=== PATIENT | female | born 1940 | race Caucasian/White ===

== ENCOUNTER 2017-09-15 13:00 | Outpatient (RCR) | payer MEDICARE | END 2017-11-07 | disposition home or self-care (01) | LOC: SPEECH | DX: R49.0 Dysphonia (principal) ==

== ENCOUNTER 2017-11-26 14:30 | Outpatient (RCR) | payer MEDICARE | END 2017-11-26 15:00 | disposition home or self-care (01) | LOC: PT 14:30 | DX: R26.89 Other abnormalities of gait and mobility (principal) ==

== ENCOUNTER 2020-08-07 16:40 | Emergency (ER) | payer MEDICARE ==
[2020-08-07 17:08] LABS: HEMATOCRIT 37.7 % (37.0-47.0); HEMOGLOBIN 11.9 g/dL (12.5-16.0); MEAN CELL VOLUME 94 fl (78-100); MEAN CORPUSCULAR HEMOGLOBIN 30 pg (27-31); MEAN CORPUSCULAR HGB CONC 32 g/dL (33-37); MEAN PLATELET VOLUME 9.9 fl (7.4-10.4); PLATELET COUNT 98 K/mm3 (130-400); RED BLOOD COUNT 4.02 M/mm3 (4.10-5.30); RED CELL DISTRIBUTION WIDTH 14.9 % (11.5-14.5)
[2020-08-07 17:15] LABS: ALBUMIN 3.5 g/dL (3.4-4.8)
[2020-08-07 17:16] LABS: POTASSIUM 3.8 mmol/L (3.5-5.1)
[2020-08-07 17:17] LABS: CALCIUM 8.7 mg/dL (8.3-10.5); LYMPHOCYTE 29 % (20-51); MONOCYTE 12 % (3-10); NEUTROPHILS 55 % (42-75); TEAR DROP CELLS 1+
[2020-08-07 17:18] LABS: TOTAL PROTEIN 6.8 g/dL (6.2-8.1)
[2020-08-07 17:20] LABS: TOTAL BILIRUBIN 0.4 mg/dL (0.2-1.2)
[2020-08-07 17:25] LABS: PROTHROMBIN TIME 11.4 SECONDS (9.0-12.0)
[2020-08-07 17:30] LABS: TROPONIN-I 0.07 ng/mL (<0.030)
[2020-08-07 17:41] LABS: D-DIMER 16.82 mg/L FEU (0.15-0.50)
[2020-08-07 17:47] LABS: URINE APPEARANCE CLOUDY; URINE BILIRUBIN NEGATIVE (NEGATIVE); URINE BLOOD 50 ery/uL (NEGATIVE); URINE COLOR YELLOW; URINE GLUCOSE NEGATIVE (NEGATIVE); URINE KETONE NEGATIVE (NEGATIVE); URINE LEUKOCYTE ESTERASE TRACE (NEGATIVE); URINE NITRATE NEGATIVE (NEGATIVE); URINE PROTEIN(semi-quant) 2+ mg/dL (NEGATIVE); URINE UROBILINOGEN NORMAL (NORMAL)
[2020-08-07 17:48] LABS: URINE MUCUS PRESENT (NOT PRESENT)
[2020-08-07 18:38] VITALS: BP 159/81
== END 2020-08-07 17:43 | disposition short-term general hospital (02) ==
LOC: ED 16:40
PROVIDERS: Family Medicine; Physician Assistant
DX: I21.3 ST elevation (STEMI) myocardial infarction of unspecified site (principal); R09.02 Hypoxemia; F17.200 Nicotine dependence, unspecified, uncomplicated; Z88.0 Allergy status to penicillin; Z85.118 Personal history of other malignant neoplasm of bronchus and lung; Z20.822 Contact with and (suspected) exposure to COVID-19
CPT/HCPCS: J1644; J3101

== ENCOUNTER 2020-09-10 11:06 | Outpatient (RCR) | payer MEDICARE ==
[2020-10-23] MEDS ORDERED: ANORO ELLIPTA1 POW IH (13:50)
[2020-10-23] MEDS ORDERED: HELIOCARE240 MG PO (13:51)
[2020-10-23] MEDS ORDERED: LIPITOR 40MG TA40 MG PO (13:51)
[2020-10-23] MEDS ORDERED: LASIX20 M1 PO (13:51)
[2020-10-23] MEDS ORDERED: PLAQUENIL 200M200 MG PO (13:52)
[2020-10-23] MEDS ORDERED: TOPROL XL 25MG25 MG PO (13:52)
[2020-10-23] MEDS ORDERED: PHARMASSURE MA500 MG PO (13:53)
[2020-10-23] MEDS ORDERED: SERTRALINE50 MG PO (13:53)
[2020-10-23] MEDS ORDERED: ENTRESTO 24 MG1 EACH PO (13:53)
[2020-10-23] MEDS ORDERED: GOOD SENSE ASPI81 M1 PO (13:53)
[2020-10-23] MEDS ORDERED: MELATONIN5 M3 PO (13:54)
[2020-10-23] MEDS ORDERED: DAILY VALUE1 EACH PO (13:54)
[2020-10-23] MEDS ORDERED: VITAMIN C PUR1000 MG PO (13:55)
== END 2020-12-09 | disposition still patient (30) ==
LOC: CARDLAB
DX: I21.4 Non-ST elevation (NSTEMI) myocardial infarction (principal); I25.2 Old myocardial infarction; Z98.61 Coronary angioplasty status

== ENCOUNTER → 2020-10-23 | Outpatient (CLI) | payer MEDICARE ==
[~2020-10-23] MED LIST: ANORO ELLIPTA1 POW IH; DAILY VALUE1 EACH PO; ENTRESTO 24 MG1 EACH PO; GOOD SENSE ASPI81 M1 PO; HELIOCARE240 MG PO; LASIX20 M1 PO; LIPITOR 40MG TA40 MG PO; MELATONIN5 M3 PO; PHARMASSURE MA500 MG PO; PLAQUENIL 200M200 MG PO; SERTRALINE50 MG PO; TOPROL XL 25MG25 MG PO; VITAMIN C PUR1000 MG PO
[2020-10-23 13:39] VITALS: BP 114/59
[2020-10-23 17:33] VITALS: BP 127/63
== END ==
LOC: AMSURD 10:44
DX: I50.22 Chronic systolic (congestive) heart failure (principal)
CPT/HCPCS: J3475

== ENCOUNTER 2020-12-24 11:00 | Outpatient (RCR) | payer MEDICARE ==
[2020-10-23 17:33] VITALS: BP 127/63
== END 2021-03-24 | disposition home or self-care (01) ==
LOC: CARDREHAB
DX: Z48.812 Encounter for surgical aftercare following surgery on the circulatory system (principal); I25.2 Old myocardial infarction

== ENCOUNTER → 2021-08-26 | Outpatient (CLI) | payer MEDICARE | LOC: RAD 12:53 | DX: E04.1 Nontoxic single thyroid nodule (principal) ==

== ENCOUNTER → 2021-11-20 | Outpatient (CLI) | payer MEDICARE | LOC: RAD 12:24 | DX: K22.2 Esophageal obstruction (principal) ==

== ENCOUNTER 2022-03-12 11:09 | Outpatient (RCR) | payer MEDICARE | END 2022-03-18 | disposition home or self-care (01) | LOC: PT | DX: R64 Cachexia (principal) ==

== ENCOUNTER 2022-03-19 09:13 | Outpatient (RCR) | payer MEDICARE ==
[2022-03-20] MEDS ORDERED: CEPHALEXIN500 M2 PO (12:37)
== END 2022-04-17 ==
LOC: PT
DX: M81.0 Age-related osteoporosis without current pathological fracture (principal); R64 Cachexia; R53.1 Weakness

== ENCOUNTER 2022-03-19 12:03 | Emergency (ER) | payer MEDICARE ==
[~2022-03-19] VITALS: Ht 160 cm; Wt 36.4 kg
[2022-03-19 13:30] LABS: HEMATOCRIT 34.8 % (37.0-47.0); HEMOGLOBIN 11.3 g/dL (12.5-16.0); MEAN CELL VOLUME 98 fl (78-100); MEAN CORPUSCULAR HEMOGLOBIN 32 pg (27-31); MEAN CORPUSCULAR HGB CONC 33 g/dL (33-37); MEAN PLATELET VOLUME 11.1 fl (7.4-10.4); PLATELET COUNT 90 K/mm3 (130-400); RED BLOOD COUNT 3.57 M/mm3 (4.10-5.30); RED CELL DISTRIBUTION WIDTH 17.5 % (11.5-14.5); WHITE BLOOD COUNT 6.5 K/mm3 (4.8-10.8)
[2022-03-19 13:56] LABS: ALBUMIN 3.1 g/dL (3.4-4.8); POTASSIUM 4.2 mmol/L (3.5-5.1); SODIUM 138 mmol/L (136-145)
[2022-03-19 13:57] LABS: CALCIUM 8.9 mg/dL (8.3-10.5)
[2022-03-19 13:58] LABS: GLUCOSE 141 mg/dL (65-105)
[2022-03-19 13:59] LABS: TOTAL PROTEIN 6.6 g/dL (6.2-8.1)
[2022-03-19 14:00] LABS: CARBON DIOXIDE 22 mmol/L (23-31); TOTAL BILIRUBIN 0.5 mg/dL (0.2-1.2)
[2022-03-19 14:04] LABS: AST-SGOT 25 U/L (5-34)
[2022-03-19 14:05] LABS: ALT/SGPT 25 U/L (0-55)
[2022-03-19 14:09] LABS: PROTHROMBIN TIME 13.7 SECONDS (9.0-12.0)
[2022-03-19 14:30] LABS: D-DIMER 29.62 mg/L FEU (0.15-0.50); TROPONIN-I < 0.030 ng/mL (<0.030)
[2022-03-19 14:55] LABS: LYMPHOCYTE 9 % (20-51); MONOCYTE 3 % (3-10); NEUTROPHILS 88 % (42-75)
[2022-03-19 17:04] LABS: URINE APPEARANCE CLEAR; URINE COLOR YELLOW; URINE PROTEIN(semi-quant) 1+ (NEGATIVE)
[2022-03-19 17:05] LABS: URINE BILIRUBIN NEGATIVE (NEGATIVE); URINE BLOOD 50 ery/uL (NEGATIVE); URINE GLUCOSE NEGATIVE (NEGATIVE); URINE KETONE NEGATIVE (NEGATIVE); URINE LEUKOCYTE ESTERASE NEGATIVE (NEGATIVE); URINE NITRATE NEGATIVE (NEGATIVE); URINE UROBILINOGEN NORMAL (NORMAL)
[2022-03-19 18:08] VITALS: BP 119/88
[2022-03-20] MEDS ORDERED: CEPHALEXIN500 M2 PO (12:37)
== END 2022-03-19 17:29 | disposition home or self-care (01) ==
LOC: ED 12:03
PROVIDERS: Family Medicine; Physician Assistant
DX: I48.91 Unspecified atrial fibrillation (principal); C34.90 Malignant neoplasm of unspecified part of unspecified bronchus or lung; D64.9 Anemia, unspecified; R79.89 Other specified abnormal findings of blood chemistry; F17.210 Nicotine dependence, cigarettes, uncomplicated; Z20.822 Contact with and (suspected) exposure to COVID-19
CPT/HCPCS: J0696; J7030; Q9967